=== PATIENT | female | born 1965 | race Caucasian/White ===

== ENCOUNTER 2023-11-21 08:23 | Day surgery (SDC) | payer BC ==
[~2023-11-21] VITALS: Ht 162.6 cm; Wt 74.6 kg
[2023-11-21] VITALS (7 sets, daily range): BP systolic 97–117; BP diastolic 58–82; PULSE 52–74; TEMP 97.4–97.7
[~2023-11-21 08:23] MED LIST: LR 1,000 ML IV SCH; Meclizine 25 MG TAB PO SCH; Scopolamine 1 MG Delivered 3-Day PATCH TD ONE
[2023-11-21] MEDS ORDERED: Scopolamine 1 MG Delivered 3-Day PATCH TD ONE (09:00)
[2023-11-21] MEDS ORDERED: Lidocaine PF 2% (20 MG/ML) 5 ML VIAL ONE (09:21)
[2023-11-21] MEDS ORDERED: Ondansetron 4 MG/2 ML VIAL ONE (09:21)
[2023-11-21] MEDS ORDERED: fentaNYL 50 MCG/ML 2 ML VIAL ONE (09:21)
[2023-11-21] MEDS ORDERED: dexAMETHasone 10 MG/ML VIAL ONE (09:21)
[2023-11-21] MEDS ORDERED: Lidocaine 1% w EPI (1:100,000) 20 ML Multi-Dose VIAL IJ ONE (10:16)
[2023-11-21] MEDS ORDERED: EPINEPHrine 1 MG/1 ML Ampule IR ONE (10:16)
[2023-11-21] MEDS ORDERED: dexAMETHasone 4 MG/ML VIAL IJ ONE (10:29)
[2023-11-21] MEDS ORDERED: droPERidol 2.5 MG/ML 2 ML VIAL IV PRN (10:30)
[2023-11-21] MEDS ORDERED: Ketorolac 30 MG/ML VIAL IV PRN (10:30)
[2023-11-21] MEDS ORDERED: Meperidine 50 MG/ML 1 ML VIAL IV PRN (10:30)
[2023-11-21] MEDS ORDERED: hydrALAZINE 20 MG/ML 1 ML VIAL IV PRN (10:30)
[2023-11-21] MEDS ORDERED: fentaNYL 50 MCG/ML 2 ML VIAL IV SCH ×2 (10:52→11:15)
[2023-11-21] MEDS ORDERED: Celecoxib 200 MG CAP PO SCH (10:57)
[2023-11-21] MEDS ORDERED: Morphine 4 MG/ML VIAL IV PRN (11:00)
[2023-11-21] MEDS ORDERED: Naloxone 0.4 MG/ML VIAL IV PRN (11:00)
--- NOTE | 2023-11-21 17:55 | NUR ---
[id number]: [place] [facility] [place]/P RIGHT KNEE SCOPE A&O, PLACED ON MONITOR, VSS ON RA ZAKIA WRAP DRSG CDI. ICE/ELEVATION TO R KNEE. NVI DISTALLY. C/O INCREASING MODERATE R HIP PAIN, SLIGHTLY IMPROVED WITH HEAT AND MOVEMENT. RECEIVED REPORT AND ASSUMED CARE OF PT FROM CALEB FOFANA FAMILY AT BEDSIDE PROVIDED FOOD/FLUIDS, TOLERATING WELL R HIP PAIN WORSENING, NO LONGER TOLERABLE - T/C TO [facility] FOR 50 MCG IV FENTANYL - GIVEN AT 1235, WITH GOOD RELIEF, WELL TOLERATED, VSS ON RA FOR REMAINDER OF STAY. PT HAS REMAINED A&O, NAD, VSS ON RA, TOLERATING PO, IS WITHOUT SIGNIFICANT COMPLAINT, WITH STEADY GAIT, NVI BY END OF STAY. IV D/C'D. D/C INSTRUCTIONS, FOLLOW UP REVIEWED AND HANDED TO PT. ALL QUESTIONS AND CONCERNS ADDRESSED TO PT SATISFACTION. TAKEN TO EXIT VIA W/C WITH ALL BELONGINGS AND PAPERWORK IN HAND, ASSISTED INTO PASSENGER SEAT OF POV. FAMILY TO DRIVE HOME.
== END 2023-11-21 13:50 | disposition home or self-care (01) ==
LOC: SDCO 08:23
DX: M23.351 Other meniscus derangements, posterior horn of lateral meniscus, right knee (principal); M23.361 Other meniscus derangements, other lateral meniscus, right knee; M17.11 Unilateral primary osteoarthritis, right knee; J45.909 Unspecified asthma, uncomplicated
CPT/HCPCS: J0171; J0665; J0690; J1100; J1790; J1885; J2175; J2405; J2704; J3010; J7120

== ENCOUNTER 2024-01-02 05:41 | Inpatient (IN) | payer BC ==
[~2024-01-02] VITALS: Ht 165.1 cm; Wt 74.5 kg
[2024-01-02] VITALS (13 sets, daily range): BP systolic 99–126; BP diastolic 62–69; PULSE 69–85; TEMP 97.1–98.3
[~2024-01-02 05:41] MED LIST changes: -Meclizine 25 MG TAB PO SCH; -Scopolamine 1 MG Delivered 3-Day PATCH TD ONE
[2024-01-02] MEDS ORDERED: TYLENOL 325MG325 MG PO (06:12)
[2024-01-02] MEDS ORDERED: ALEVE 220MG220 MG PO (06:13)
[2024-01-02] MEDS ORDERED: Midazolam 2 MG/2 ML VIAL ONE (06:48)
[2024-01-02] MEDS ORDERED: fentaNYL 50 MCG/ML 2 ML VIAL ONE (06:48)
[2024-01-02] MEDS ORDERED: Lidocaine PF 2% (20 MG/ML) 5 ML VIAL ONE (06:49)
[2024-01-02] MEDS ORDERED: NS 10 ML IV ONE (06:49)
[2024-01-02] MEDS ORDERED: dexAMETHasone 10 MG/ML VIAL ONE (06:49)
[2024-01-02] MEDS ORDERED: Acetaminophen 500 MG TAB PO SCH (07:15)
[2024-01-02] MEDS ORDERED: Mag/Al Hydrox/Simeth Susp 30 ML CUP PO PRN (07:15)
[2024-01-02] MEDS ORDERED: Bisacodyl 5 MG TAB PO PRN (07:15)
[2024-01-02] MEDS ORDERED: oxyCODONE 5 MG TAB PO PRN (07:15)
[2024-01-02] MEDS ORDERED: Magnes Hydrox (MOM) 80 MG/ML 30 ML CUP PO PRN (07:15)
[2024-01-02] MEDS ORDERED: Naloxone 0.4 MG/ML VIAL IV PRN (07:15)
[2024-01-02] MEDS ORDERED: Acetaminophen 500 MG TAB PO PRN (07:15)
[2024-01-02] MEDS ORDERED: NS 1,000 ML IV SCH (07:15)
[2024-01-02] MEDS ORDERED: Thrombin Human (Recombinant) 5,000 UNITS VIAL TP ONE (07:16)
[2024-01-02] MEDS ORDERED: Ketorolac 30 MG/ML VIAL IM ONE (07:16)
[2024-01-02] MEDS ORDERED: NS 10 ML VIAL IJ ONE (07:16)
[2024-01-02] MEDS ORDERED: ePHEDrine 50 MG/ML VIAL ONE (07:44)
[2024-01-02] MEDS ORDERED: Ondansetron 4 MG/2 ML VIAL ONE (07:44)
[2024-01-02] MEDS ORDERED: droPERidol 2.5 MG/ML 2 ML VIAL IV PRN (07:45)
[2024-01-02] MEDS ORDERED: fentaNYL 50 MCG/ML 1 ML SYRINGE/VIAL [PACU/SDC ONLY] IV PRN (07:45)
[2024-01-02] MEDS ORDERED: Ondansetron 4 MG/2 ML VIAL IV PRN ×2 (07:45→11:30)
[2024-01-02] MEDS ORDERED: HYDROmorphone 1 MG/1 ML SYRINGE [PACU/SDC ONLY] IV PRN (07:45)
[2024-01-02] MEDS ORDERED: hydrALAZINE 20 MG/ML 1 ML VIAL IV PRN (07:45)
[2024-01-02] MEDS ORDERED: Sennosides/Docusate 8.6-50 MG TAB PO SCH (09:00)
[2024-01-02] MEDS ORDERED: Ascorbic Acid 500 MG TAB PO SCH (09:00)
[2024-01-02] MEDS ORDERED: Celecoxib 200 MG CAP PO SCH (09:00)
[2024-01-02] MEDS ORDERED: traMADol 50 MG TAB PO SCH (09:00)
[2024-01-02] MEDS ORDERED: Magnes Hydrox (MOM) 80 MG/ML 30 ML CUP PO SCH (09:00)
[2024-01-02] MEDS ORDERED: Scopolamine 1 MG Delivered 3-Day PATCH TD SCH (09:52)
--- NOTE | 2024-01-02 10:31 | NUR ---
PT TO ROOM 328 PER BED WITH REPORT FROM BRIGIDO DETAIL MAKER AND FITTER @3018. PT IS RESTING IN BED, VSS, LUNGS CTA, BOWEL SOUNDS PRESENT. DRESSING TO RIGHT KNEE CDI. WITH ZAKIA WRAP OVER BULKY DRESSING. IV TO LH PER GRAVITY. AT BEDSIDE. ORIENTED PT AND FAMILY TO ROOM SERVICE.
[2024-01-02 12:48] LABS: BASO % 0.4 % (0.0-2.0); EOS % 0.2 % (0.0-4.0); GRAN # 4.4 K/mm3 (1.4-6.5); GRAN % 88.3 % (42.2-75.2); HEMATOCRIT 37.6 % (37.0-47.0); HEMOGLOBIN 12.8 g/dl (12.5-16.0); LYMPH # 0.5 K/mm3 (1.2-3.4); LYMPH % 9.5 % (20.0-51.0); MEAN CELL VOLUME 89 fl (80.0-100.0); MEAN CORPUSCULAR HEMOGLOBIN 30 pg (27-31); MEAN CORPUSCULAR HGB CONC 34 g/dl (33.0-37.0); MEAN PLATELET VOLUME 10.6 fl (7.4-10.4); MONO # 0.1 K/mm3 (0.1-0.6); MONO % 1.4 % (1.7-9.3); PLATELET COUNT 134 K/mm3 (130-400); RED BLOOD COUNT 4.24 M/mm3 (4.10-5.30); REDCELL DISTRIBUTION WIDTH-CV 13.1 % (11.5-14.5)
[2024-01-02 13:00] LABS: CALCIUM 8.9 mg/dL (8.4-10.2); CREATININE, serum 0.78 mg/dL (0.57-1.11); POTASSIUM 3.7 mEq/L (3.5-4.5)
--- NOTE | 2024-01-02 13:00 | NUR ---
NOTIFIED OF HOSPITALIST CONSULT @ 9626.
[2024-01-02] MEDS ORDERED: ceFAZolin 2 G in Water For Injection,Sterile 20 ML IV SCH (15:00)
[2024-01-02] MEDS ORDERED: Rivaroxaban 10 MG TAB PO SCH (17:00)
--- NOTE | 2024-01-02 18:59 | NUR ---
report received from chemo fink. pt resting in bed with at bedside. pt c/o increased left knee pain rated 6/10. scheduled tylenol and prn oxycodone administered per orders. fall precautions in place. call light in reach. all needs met at this time.
--- NOTE | 2024-01-02 20:18 | NUR ---
shift assessment complete, see documentation. pt tolerated hs meds well. pt reported prn oxycodone administered earlier has relieved most of her pain. pain now rated 3/10. call light in reach. all needs met at this time.
[2024-01-03] VITALS (14 sets, daily range): BP systolic 93–138; BP diastolic 57–70; PULSE 67–90; TEMP 97.7–98.8
--- NOTE | 2024-01-03 03:56 | NUR ---
pt ambulated to bathroom with sba. pt c/o increased right knee pain rated 6/10. prn oxycodone administered per orders. call light in reach. all needs met at this time.
--- NOTE | 2024-01-03 08:08 | NUR ---
PT RESTING IN BED, DR RODGERS IN TO SEE PT. PT C/O INTERMITTANT NAUSEA. ONLINE MARKETING STRATEGIST MEDICATIED WITH ZOFRAN PRN. REINFORCED DRESSING TO RIGHT KNEE CDI. PT UP TO BR WITH SBA VOIDING WITH NO ISSUES. EATING AND DRINKING. PAIN WELL CONTROLLED WITH PO MEDS AT THIS TIME.
--- NOTE | 2024-01-03 10:08 | NUR ---
supervisor hand workers met with patient to discuss discharge planning. Pt reports she lives with her , Mahendra [phone] in [place]. She sees Dr. Ruby Buckley and obtains medications from [facility] with no difficulties. She is independent with ADLs and uses no DME. She does not have a DPOA-HC and declined one at this time. Pt notes Dr. Mak met with her this morning and she intends to discharge home with OP PT. Pt chose therpay at [facility]. TEO advised she will send the referral there. SW faxed OP PT referral to [facility]. Discharge Plan: home with OP PT at [facility]
--- NOTE | 2024-01-03 11:35 | NUR ---
RESTARTED FLUIDS, NS @125, PT SLIGHTLY HYPOTENSIVE AND C/O DIZZINESS WITH AMBULATION.
--- NOTE | 2024-01-03 13:37 | NUR ---
UPDATED KASI SÁNCHEZ ON PT CONDITION AFTER WORKING WITH THERAPY. NEW ORDERS RECIEVED.
--- NOTE | 2024-01-03 14:08 | NUR ---
Initial visit; Patient thanked Risk Control Field Representative for looking in on her and wishing her well and God's blessings. Her was present and also thanked Risk Control Field Representative for looking in on Billie.
[2024-01-03 14:48] LABS: BASO # 0.1 K/mm3 (0.0-0.2); BASO % 0.6 % (0.0-2.0); EOS % 0.5 % (0.0-4.0); GRAN # 6.8 K/mm3 (1.4-6.5); GRAN % 80.4 % (42.2-75.2); LYMPH # 1.1 K/mm3 (1.2-3.4); LYMPH % 12.8 % (20.0-51.0); MEAN CELL VOLUME 88 fl (80.0-100.0); MEAN CORPUSCULAR HGB CONC 34 g/dl (33.0-37.0); MEAN PLATELET VOLUME 10.8 fl (7.4-10.4); MONO # 0.5 K/mm3 (0.1-0.6); MONO % 5.5 % (1.7-9.3); PLATELET COUNT 127 K/mm3 (130-400); REDCELL DISTRIBUTION WIDTH-CV 13.2 % (11.5-14.5)
[2024-01-03 14:51] LABS: HEMOGLOBIN 10.3 g/dl (12.5-16.0); MEAN CORPUSCULAR HEMOGLOBIN 30 pg (27-31)
[2024-01-03 15:06] LABS: CALCIUM 8.6 mg/dL (8.4-10.2); CREATININE, serum 0.77 mg/dL (0.57-1.11)
--- NOTE | 2024-01-03 15:27 | NUR ---
DRESSING CHANGE COMPLETE. AQUACELL PLACED OVER NÉSTOR. DRESSING CDI.
--- NOTE | 2024-01-03 17:30 | NUR ---
PT HAS HAS SEVERAL BOUTS OF EMESIS THIS PM. AFTER EATING PT VOMITS ENTIRE AMOUNT CONSUMED. PROVIDED EDUCATION ON PONV.
--- NOTE | 2024-01-03 20:30 | NUR ---
PT A&O X4 LAYING IN BED. AQUACELL TO RT KNEE WITH BLOODY DRAINAGE, PT RATING PAIN 4/10, GAVE SCHEDULED TYLENOL. PT DENYING N/V AT THIS TIME. INT TO LEFT FOREARM PATENT. MAYO NGUYEN ON. GIVEN JELLO & CRACKERS PER PT REQUEST. DENYING OTHER NEEDS. CALL LIGHT IN REACH
[2024-01-04] VITALS (9 sets, daily range): BP systolic 107–122; BP diastolic 63–75; PULSE 65–656; TEMP 97.7–98.3
--- NOTE | 2024-01-04 04:32 | NUR ---
PT AMBUALTED TO RESTROOM WITH SBA. RATES KNEE PAIN 4/, GAVE PRN TYLENOL PER NOV. PT DENIES N/V, REPORTS TOLERATING JELLO & CRACKERS EARLIER IN THE NIGHT WITHOUT N/V.
--- NOTE | 2024-01-04 06:45 | NUR ---
pt had one episode of vomiting at shift change, gave prn zofran per nov.
--- NOTE | 2024-01-04 06:55 | NUR ---
awake sitting up in bed, bedside shift report received from CALEB Mishra
--- NOTE | 2024-01-04 07:55 | NUR ---
awake and resting in bed, c/o some nausea again, will order breakfast and try eating
--- NOTE | 2024-01-04 08:40 | NUR ---
Dr Munguia was in and saw patient, dressing changed by him, will monitor for drainage
[2024-01-04] MEDS ORDERED: Ondansetron 4 MG/2 ML VIAL IV SCH (09:00)
--- NOTE | 2024-01-04 09:15 | NUR ---
ambulated out in [place] with physical therapy and then back to room and resting in chair, states pain is 5/10, medicated with scheduled tramadol,
[2024-01-04] MEDS ORDERED: CEPHALEXIN500 M1 PO (09:21)
[2024-01-04] MEDS ORDERED: XARELTO2.5 MG PO (09:22)
[2024-01-04] MEDS ORDERED: ULTRAM 50MG TAB50 MG PO (09:22)
[2024-01-04] MEDS ORDERED: Cephalexin 500 MG CAP PO SCH (10:00)
--- NOTE | 2024-01-04 10:05 | NUR ---
pharmacist spoke with patient regarding allergy to PCN and taking Keflix, patient has agreed she will try this, she is informed to notify staff if she feels she is starting to have any side effects, verbalizes understanding, states has not had any nausea or vomitting after taking celebrex and tramadol, at bedside
--- NOTE | 2024-01-04 10:30 | NUR ---
resting in bed now, states is not having any difficulty breathing or feeling any swelling in her throat but feels like she is breathing out hot air, pharmacy notified, there is no rash or itching, resp are quiet and easy, talked with her that could be due to some anxiety about past reaction to PCN, will notify Dr Mak
--- NOTE | 2024-01-04 11:21 | NUR ---
D: Initial visit: Supervisor Remelt stopped by room on rounds. A: Pt was resting and content with in the room . No needs right now. P: Supervisor Remelt informed pt that if she needed anything from the making department preparer to let her nurse know. Supervisor Remelt will follow up as needed.
--- NOTE | 2024-01-04 12:00 | NUR ---
was reported to this by FERTILIZING MACHINE OPERATOR patient again had mod amount emesis, liquid with undigested food from breakfast, medicated with zofran 4mg slow IV by Mine Rubi RN, has small amount bloody drainage on gauze under radha wrap, denies allergy or adverse reaction to Acetaminophen,
--- NOTE | 2024-01-04 12:48 | NUR ---
talked with Dr Mak regarding patient's emesis, small amount of drainage and her not wanting to take Keflex, patient does not wawnt to take KEflex after initially trying and having emesis, informed patient if the nausea and vomitting subside will possibly be able to go home this afternoon
--- NOTE | 2024-01-04 13:45 | NUR ---
had lunch and tolerated well without nausea or vomitting, radha wrap and gauze removed from right knee, no drainage noted, aquacel dressing placed
--- NOTE | 2024-01-04 14:08 | NUR ---
nitro worker was notified pt can discharge today if she is feeling better around 4pm with no emesis by then. SW faxed initial referral for OP PT to [facility], but discharge orders are not finalized. Discharge Plan: home with OP PT-- needs dc orders sent
--- NOTE | 2024-01-04 15:24 | NUR ---
report given to CALEB Bourgeois
--- NOTE | 2024-01-04 16:15 | NUR ---
REPORT RECIVED. THIS NURSE TOOK OVER CARE OF THIS PATIENT. PATIENT AWAKE AND WATCHING TV W/ SPOUSE AT BEDSUDE. PATIENT REPORTS NO N/V AND HAS NO REQUEST AT THIS TIME. RT KNEE HAS SOME PREV. BLOOD DISCHARGE ON DRESSING AND MIN. SWELLING AT SITE. PATIENT DENIES ANY PIAN AT THS TIME. CALL LIGHT IN REACH
[2024-01-04] MEDS ORDERED: BACTRIM DS 8001 TAB PO (16:38)
--- NOTE | 2024-01-04 17:41 | NUR ---
PATIENT RECEIVED DISCHARGE ORDERS. PATIENT HAS NO REQUEST OR QUESTIONS AT THIS TIME. DISCHARAGE PAPERS GIVEN AND PATIENT WHEELED OUT W/ SPOUSE TO HOME.
[2024-01-04] MEDS ORDERED: Rivaroxaban 2.5 MG TAB PO SCH (21:00)
== END 2024-01-04 17:45 | disposition home or self-care (01) | DRG 470 ==
LOC: SDCO 05:41 → SURG 09:45 → SDCO 01-03 13:59 → SURG 01-03 14:00
PROVIDERS: Physician Assistant; ADMIT Orthopaedic Surgery
PROC: 0SRC0L9 Replacement of Right Knee Joint with Medial Unicondylar Synthetic Substitute, Cemented, Open Approach (ICD-10-PCS; principal; 2024-01-02 07:30)
DX: M17.11 Unilateral primary osteoarthritis, right knee (principal); R11.2 Nausea with vomiting, unspecified; Z96.642 Presence of left artificial hip joint; Z86.711 Personal history of pulmonary embolism; Z79.01 Long term (current) use of anticoagulants; Z90.49 Acquired absence of other specified parts of digestive tract; Z90.710 Acquired absence of both cervix and uterus; Z88.6 Allergy status to analgesic agent; Z88.5 Allergy status to narcotic agent; Z88.0 Allergy status to penicillin
CPT/HCPCS: OP; A9284; C1713; C1776; J0665; J0690; J1100; J1580; J1885; J2250; J2405; J2704; J2795; J3010; J7030